=== PATIENT | female | born 1995 | race Caucasian/White ===

== ENCOUNTER 2021-02-24 12:42 | Emergency (ER) | payer MEDICAID, SELFPAY ==
--- NOTE | ~2021-02-24 | XR_ITS ---
EXAMINATION: XR ELBOW, LEFT CLINICAL INFORMATION: Left elbow pain. Injury. COMPARISON: None TECHNIQUE: AP, lateral, and oblique views of the left elbow. FINDINGS: There is no visible acute fracture, dislocation subluxation. No bony erosive changes. No joint effusion. Alignment is normal. There is posterior elbow soft tissue swelling. XR/XR elbow LT 2V IMPRESSION: Posterior elbow soft tissue swelling likely soft tissue contusion. No visible acute fracture or dislocation.
[2021-02-24 12:49] VITALS: BP 137/97; PULSE 98; RESP 16; TEMP 36.7; O2SAT 97; BMI 22.7
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
== END 2021-02-24 14:55 | disposition home or self-care (01) ==
PROVIDERS: Emergency Provider Emergency Medicine Emergency Medical Services; PCP Family Medicine
DX: S50.02XA Contusion of left elbow, initial encounter (principal); W03.XXXA Other fall on same level due to collision with another person, initial encounter; Y93.9 Activity, unspecified; Y92.9 Unspecified place or not applicable; Y99.9 Unspecified external cause status
CPT/HCPCS: 73070; 99283